=== PATIENT | male | born 1970 | race Caucasian/White ===

== ENCOUNTER 2024-12-19 14:34 | Outpatient (REF) | payer OTHER, SELFPAY ==
[2024-12-19 15:57] LABS: MANUAL DIFF FLAG NO
[2024-12-19 17:08] LABS: Hematocrit 42.9 % (42.0-52.0); Hemoglobin 15.0 g/dl (14.0-18.0); Imm Gran Abs Auto 0.01 X10*3/uL (0.00-0.03); Imm Gran Pct Auto 0.2 % (0.0-0.4); Lymphocytes Absolute Auto 1.3 X10*3/uL (1.2-4.9); Mean Corpuscular HGB Conc 35.0 g/dl (31.0-36.0); Mean Corpuscular Hemoglobin 30.5 pg (27.0-33.0); Mean Corpuscular Volume 87.2 fL (80.0-98.0); NRBC Abs Auto 0.000 X10*3/uL (0.0-0.012); NRBC Pct Auto 0.0 /100WBC (0.0-0.2); Platelet Count 209 X10*3/uL (160-400); Red Blood Count 4.92 X10*6/uL (4.60-5.80); White Blood Count 5.6 X10*3/uL (4.8-10.8)
[2024-12-19 17:38] LABS: Microalbum/Creatinine Ratio Ur 20.3 ug/mg cr (<30)
[2024-12-19 17:44] LABS: Alanine Aminotransferase 35 U/L (0-40); Albumin Level 4.5 g/dL (3.5-5.0); Alkaline Phosphatase 53 U/L (39-117); Anion Gap 13 (12-20); Aspartate Amino Transferase 26 U/L (5-37); Blood Urea Nitrogen 11 mg/dL (9-16); Calcium 9.2 mg/dL (8.4-10.2); Carbon Dioxide 27 mmol/L (22-29); Chloride 107 mmol/L (96-108); Cholesterol 246 mg/dL (<200); Estimated Glomerular Filt Rate > 60; HDL Cholesterol 61 mg/dL (>40); Potassium 4.3 mmol/L (3.3-5.1); Sodium 143 mmol/L (135-145); Total Protein 7.0 g/dL (6.5-8.0); Triglycerides 146 mg/dL (<150)
[2024-12-20 06:13] LABS: Syphilis Screen Nonreactive (Nonreactive)
[2024-12-20 06:43] LABS: HBS Num1 0.21 mIU/mL (0-7.99); HBc Num1 0.03 S/CO (0.00-0.79); HBsAGNum1 0.42 S/CO (0.00-0.99); HIV Num 1 0.07 S/CO (0.00-0.99); Hepatitis A Antibody IgM 0.12 Index (0-0.79); Hepatitis B Surface Antigen Negative (Negative); ~HepC Num1 0.07 S/CO (0.00-0.79); ~Hepatitis A Antibody IgM Nonreactive (Nonreactive); ~Hepatitis B Surface Antibody NONREACTIVE (Nonreactive); ~Hepatitis C Antibody Nonreactive (Nonreactive)
== END 2024-12-19 14:35 | disposition home or self-care (01) ==
LOC: HO.LAB 14:34
PROVIDERS: PCP Student in an Organized Health Care Education/Training Program; Visit Provider Student in an Organized Health Care Education/Training Program
DX: Z00.00 Encounter for general adult medical examination without abnormal findings (principal); I10 Essential (primary) hypertension; G57.11 Meralgia paresthetica, right lower limb
CPT/HCPCS: 36415; 80053; 80061; 82043; 82306; 82570; 83036; 84443; 85025; 86704; 86706; 86709; 86780; 86803; 87340; 87389; 96127

== ENCOUNTER 2024-12-19 14:34 | Outpatient (AMB) | payer OTHER, SELFPAY ==
--- NOTE | 2024-12-19 14:37 | A.OFFPC_ITS ---
Vital Signs 12/19/24 14:40 Height 6 ft Weight 236 lb 4 oz BMI 32.0 BP 150/86 H Blood Pressure Location Rt brachial Position Sitting Pulse 89 Pulse Source Pulse Oximeter Temp 98.2 F Temp Source Temporal Artery Scan Pulse Oximetry (%) 99 Oxygen Delivery Method Room Air Intake Visit Reasons: [place] from [place] (see comments) Power Driven Brush Maker Required: No Accompanied by: Self / Same As Patient Allergies No Known Allergies Allergy (Verified 12/19/24 14:37) Tobacco use date assessed: 12/19/24 Dental Screening Dental Screen Date: 12/19/24 Did you have a dental visit in the last 12 months?: Yes Did you have a dental problem in the last 6 months where you did not have access to dental care?: No HPI HPI Comments History of Present Illness Details The patient is a 54-year-old male presenting to [facility] with a new primary care physician and for management of hypertension. He has a known history of high blood pressure but stopped taking his medication in the spring as he was feeling well. Despite taking his losartan this morning, his blood pressure remains elevated in the 150s. The patient has a significant family history of heart disease; his mother had a myocardial infarction in 2019, and his father has had a heart valve replacement, both of whom are in their 80s. He denies any personal history of surgeries or other medical conditions. 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 He denies associated back pain. For preventative care, his last colonoscopy was approximately three years ago, with a 10-year follow-up interval recommended. Medical History: - Hypertension Surgical History: - No surgeries reported Medications: - Losartan for hypertension; the patient recently resumed this medication after stopping it in the spring. Family History: - Mother: History of a myocardial infarc tion in 2019. - Father: History of heart valve replace ment. - Both parents are in their 80s. - Denies family history of diabetes or c ancer. Diagnostic Results: - Colonoscopy: Performed approximately 3 years ago, with a 10-year follow-up interval recommended. Social History: - Patient is a martínez. - Divides his time between [place] and [facility]. - Alcohol use: Reports drinking 2-3 beer s per week, typically on separate days. - Tobacco use: Denies ever smoking. - Substance use: Denies use of marijuana , heroin, or cocaine. - Weight Management: Patient acknowledge s the need to lose weight. [facility] Medical History (Updated 12/19/24 @ 15:34 by Patel Long MD) Meralgia paraesthetica Hypertension Annual physical exam Family History (Updated 12/19/24 @ 14:44 by Meka Landa MA) Mother No problems noted. Father No problems noted. Social History Housing: Condominium Patient Tobacco Use Status: Never used Tobacco e-Cigarette/Vaping Use: Never Used service: No Current occupational status: employed Cognitive needs: No Hearing needs: No Vision needs: Yes (rx glasses) Questionnaire PHQ-9 Over the last 2 weeks, how often have you been bothered by any of the following problems? 1. Little interest or pleasure in doing things: not at all 2. Feeling down, depressed, or hopeless: not at all 3. Trouble falling or staying asleep, or sleeping too much: not at all 4. Feeling tired or having little energy: not at all 5. Poor appetite or overeating: not at all 6. Feeling bad about yourself - or that you are a failure or have let yourself or your family down: not at all 7. Trouble concentrating on things, such as reading the newspaper or watching television: not at all 8. Moving or speaking so slowly that other people could have noticed. Or the opposite - being so fidgety or restless that you have been moving around a lot more than usual: not at all 9. Thoughts that you would be better off or of hurting yourself in some way: not at all Total score: 0 Depression Screening Interpretation: Negative Depression Screening Done: Yes 72613 - PHQ-9 Billing: Yes Source: Developed by Drs. Danny Longo, Anya Gage, Ajit Anthony and colleagues, with an educational mame from [email or web address]. Thrive Questionnaire Date Thrive assessed: 12/19/24 I am a: Patient What is your living situation today?: I have a steady place to live Within the past 12 months, did the food you bought not last and you didn't have the money to get more?: Never true Within the past 12 months, did you worry whether your food would run out before you got money to buy more?: Never true Do you have trouble paying for medicines?: No Do you have trouble getting transportation to medical appointments?: No Do you have trouble paying your heating and electricity bill?: No Do you have trouble taking care of your child, family member or friend?: No Do you have trouble with day-to-day activities such as bathing, preparing meals, shopping, managing finances, etc.?: No Are you currently unemployed and looking for a job?: No Are you interested in more education?: No THRIVE Score: 0 AUDIT C Alcohol Use Questionnaire (AUDIT-C) 1. How often do you have a drink containing alcohol?: 2-3 times a week 2. How many drinks containing alcohol do you have on a typical day when you are drinking?: 1 or 2 3. How often do you have six or more drinks on one occasion?: Never Total Score: 3 Score Reviewed/Action Taken: Yes BLADE-7 AMB Questionnaire BLADE-7 Date BLADE - 7 assessed: 12/19/24 Feeling nervous, anxious, or on edge: 0 = Not at all Not being able to stop or control worryin = Not at all Worrying too much about different things: 0 = Not at all Trouble relaxin = Not at all Being so restless that it is hard to sit still: 0 = Not at all Becoming easily annoyed or irritable: 0 = Not at all Feeling afraid as if something awful might happen: 0 = Not at all Total BLADE-7 score (0-4 normal; 5-9 mild; 10-14 moderate; 15-21 severe): 0 Source: Developed by Drs. Danny Longo, Anya Gage, Ajit Anthony and colleagues, with an educational mame from [email or web address]. BLADE-7 Assessment Billing BLADE-7 Assessment Tool: BLADE-7 Assessment 91467 Review of Systems Narrative - General: Denies any specific complaints or weight loss but acknowledges the need to lose weight. - Neurological: Reports numbness, warmth, and a prickly sensation on the side of his right leg. - Musculoskeletal: Denies back pain. - Psychiatric: Reports good mood and denies depression or anxiety. All systems reviewed & are unremarkable except as reviewed in HPI and above Physical exam (Primary Care) Vital Signs: Last Vital Signs Temp 98.2 F 12/19/24 14:40 Pulse 89 12/19/24 14:40 BP 150/86 H 12/19/24 14:40 Pulse Ox 99 12/19/24 14:40 Oxygen Delivery Method Room Air 12/19/24 14:40 BMI result Body Mass Index 32.0 Tobacco/Smoking Status: Tobacco use Status Tobacco use date assessed 12/19/24 12/19/24 14:39 Patient Tobacco Use Status Never used Tobacco 12/19/24 14:39 e-Cigarette/Vaping Use Never Used 12/19/24 14:39 PHQ-9: PHQ-9 Score PHQ-9: Total score 0 12/19/24 15:09 Depression Screening Interpretation: Negative Thrive Assessment: Date of Thrive Assessment Date Thrive assessed 12/19/24 12/19/24 14:39 Narrative General: +Alert and oriented, Well nourished, No acute distress. Eye: Pupils are equal, round and reactive to light, Intact accommodation, Extraocular movements are intact, Normal conjunctiva, Vision unchanged. HENT: Normocephalic, Atraumatic, Tympanic membranes are clear, Normal hearing, Oral mucosa is moist, No pharyngeal erythema, Ear canals patent. Respiratory: Lungs CTA bilaterally, No wheeze, Respirations are non-labored. Cardiovascular: Regular rate, Regular rhythm, S1 auscultated, S2 auscultated, No murmur, Good pulses equal in all extremities, Normal peripheral perfusion, No edema. Gastrointestinal: Soft, Non-tender, Non-distended, Normal bowel sounds, No organomegaly. Musculoskeletal: Normal range of motion, Normal strength, No tenderness, No swelling, No deformity, Normal gait. Integumentary: Warm, Dry, [place], Intact. Neurologic: Alert, Oriented, Normal sensory, Normal motor function, No focal defects, Cranial Nerves II-XII are grossly intact, Normal deep tendon reflexes. Psychiatric: Cooperative, Appropriate mood & affect, Normal judgment. Coding Level of Care Code New Pt Level 3 (11695) New Pt Prev Care 40-64y(25097) Diagnoses Primary hypertension I10 Hypertension type: primary hypertension Meralgia paresthetica of right side G57.11 Laterality: right Annual physical exam Z00.00 Additional Codes PHQ-9 - 47509 - PHQ-9 Billing: Yes ([id number]) BLADE-7 Assessment Billing - BLADE-7 Assessment Tool: BLADE-7 Assessment 78139 ([id number]) Comment 55229-00 Assessment & Plan Assessment & Plan (1) Hypertension: Comment: - The patient's hypertension is poorly controlled, with a blood pressure in the 150s despite taking losartan, likely compounded by recent non-adherence. - Given his strong family history of heart disease, the goal is a blood pressure under 130/140 mmHg. - The plan is for the patient to monitor his blood pressure at home for two weeks and follow up. - If his readings remain elevated, the losartan dose may be doubled to 100 mg. - He was also advised on dietary modifications, including reducing salt, sugar, and processed foods. Code(s): I10 - Essential (primary) hypertension Category: Medical Qualifiers: Hypertension type: primary hypertension Qualified Code(s): I10 - Essential (primary) hypertension (2) Meralgia paraesthetica: Comment: - The patient presents with symptoms of numbness and paresthesia on his lateral thigh, consistent with a diagnosis of meralgia paresthetica. - This is likely secondary to wearing tight and compressive clothing for work. - The physical exam revealed no motor deficits. - The plan is for the patient to wear looser clothing, and he was reassured that the symptoms should resolve within a few weeks. Code(s): G57.10 - Meralgia paresthetica, unspecified lower limb Category: Medical Qualifiers: Laterality: right Qualified Code(s): G57.11 - Meralgia paresthetica, right lower limb (3) Annual physical exam: Comment: - This visit serves as an annual physical to establish care. - A comprehensive set of baseline labs has been ordered, including a CBC, electrolytes, lipid profile, syphilis screen, hepatitis panel, HIV test, vitamin D, thyroid studies, and glucose levels. - The patient was informed that if his cholesterol is high, statin therapy would be initiated for primary prevention of cardiovascular disease. - His colonoscopy is up to date, with the next one due in approximately seven years. - The patient was also set up with the patient portal. Code(s): Z00.00 - Encounter for general adult medical examination without abnormal findings Category: Medical Plan: Health Maintenance: - Colon Cancer Screening: Last colonoscopy was approximately three years ago; next screening is due in about seven years. - Cardiovascular Risk Reduction: Discussed the importance of blood pressure control and the potential need for statin therapy pending lipid profile results. Counseled on dietary modifications, including reduction of salt, sugar, and processed foods. - Laboratory Screening: Ordered comprehensive baseline blood work, including CBC, electrolytes, lipid profile, syphilis, hepatitis, HIV, vitamin D, thyroid, and glucose levels. Patient was informed and verbally consented to the use of an ambient scribe for clinic note documentation during this visit. Vital signs reviewed. Comprehensive history, review of systems, and physical exam completed. Medications, allergies, and problem list reviewed and updated. Counseling provided on nutrition, regular exercise, sleep hygiene, and moderation of alcohol use. Discussed age-appropriate screenings (mammogram, colonoscopy, Pap, bone density) and immunizations (flu, COVID, shingles, Tdap). Screened for depression, fall risk, and home safety; no current concerns. Discussed stress management, dental and vision care, and importance of ongoing preventive follow-up. Routine labs ordered for metabolic and lipid screening. Patient educated on healthy lifestyle and agrees with the plan. Plan I discussed with the patient that his blood pressure is currently too high, which places him at an increased risk for heart attack and stroke, especially given his strong family history of heart disease. We agreed on a plan for him to monitor his pressures at home for two weeks before we make any medication adjustments, with a follow-up visit scheduled. I explained that I have ordered comprehensive blood work, and if his cholesterol is elevated, he will need to start a statin medication to reduce his cardiovascular risk. I also addressed his complaint of leg numbness, diagnosing it as meralgia paresthetica due to tight clothing, and I reassured him that this should resolve with wearing looser clothes and that his neurologic exam shows no signs of nerve damage. We reviewed the importance of diet, specifically cutting down on salt and processed foods, as part of his overall health management. Orders: Orders Complete Blood Count Auto Diff Today Z00.00 - Encounter for general adult medical examination without abnormal findings Comprehensive Met. Panel Today Z00.00 - Encounter for general adult medical examination without abnormal findings Hemoglobin A1c Today Z00.00 - Encounter for general adult medical examination without abnormal findings HIV Ab/Ag Today Z00.00 - Encounter for general adult medical examination without abnormal findings Microalbumin, Random (w Creat) Today Z00.00 - Encounter for general adult medical examination without abnormal findings Syphilis Screen Today Z00.00 - Encounter for general adult medical examination without abnormal findings Vitamin D 25-OH Total Today Z00.00 - Encounter for general adult medical examination without abnormal findings Hepatitis A,B,C Profile Today Z00.00 - Encounter for general adult medical examination without abnormal findings Lipid Panel Today Z00.00 - Encounter for general adult medical examination without abnormal findings TSH reflex Free T4 Today Z00.00 - Encounter for general adult medical examination without abnormal findings Patient Instructions: - Buy an upper arm blood pressure cuff. - Check your blood pressure every day for the next two weeks. - Take your losartan pill in the morning as soon as you wake up. - When you check your blood pressure, sit and relax for 10 minutes beforehand and check it about one hour after you take your medication. - Write down your blood pressure readings and bring the list to your follow-up appointment in two weeks. - Go to the lab to have your blood drawn for the ordered tests; you do not need to fast. - Make changes to your diet by cutting down on salt, sugar, and processed foods. - Wear loose-fitting clothing to help with the numbness in your leg. - Sign up for the patient portal to communicate with the office and view your results.
[2024-12-19 14:40] VITALS: BP 150/86; PULSE 89; TEMP 36.8; O2SAT 99; BMI 32.0
--- OUTSIDE RECORDS SUMMARY | 2024-12-19 16:54 | XMS_ITS | Clinical Summary ---
Author Organization [facility] Address [address] [place] [id number] Care Team Providers Care Phosphorus Processing Supervisor Name Role Phone Aaron Nassar MD Primary Care Provider + Allergies No known active allergies Social History Tobacco Use Types Packs/Day Years Used Date Smoking Tobacco: Never Assessed Sex and Gender Information Value Date Recorded Sex Assigned at Not on file Legal Sex Male 18:17 EST Gender Identity Not on file Sexual Orientation Not on file Plan of Treatment Health Maintenance Due Date Last Done Comments Hepatitis C Screen 1970 Hepatitis B Vaccine (1 of 3 - 19+ 3-dose series) 11/29 COVID-19 Vaccine ( season) 2023 Care Teams Phosphorus Processing Supervisor Relationship Specialty Start Date End Date Aaron Nassar MD [address] [place] [id number] PCP - General 08/15/09
--- OUTSIDE RECORDS SUMMARY | 2024-12-19 16:54 | XMS_ITS | Encounter Summary ---
Author Organization [facility] Address [address] [place] [id number] Care Team Providers Care Jive Developer Name Role Phone Aaron Nassar MD Primary Care Provider + Encounter Details Date Type Department Care Team (Late st Contact Info) Description 03/15/2020 Lab Requisition [facility] Pathology & Laboratory Medicine - [address] [address] Outr Resulting Lab, Provider Social History Tobacco Use Types Packs/Day Years Used Date Smoking Tobacco: Never Assessed Sex and Gender Information Value Date Recorded Sex Assigned at Not on file Legal Sex Male 18:17 EST Gender Identity Not on file Sexual Orientation Not on file documented as of this encounter Plan of Treatment Not on file documented as of this encounter Procedures Procedure Name Priority Date/Time Associated Diagnosis Comments THYROPEROXIDASE ANTIBODY Routine 03/15/2020 10:58 EST documented in this encounter Results * (ABNORMAL) THYROPEROXIDASE ANTIBODY (03/15/2020 10:58 EST) Thyroperoxidase Ab 132(H) <=60 U/mL 2020 23:16 EST [facility] Blood VENOUS BLOOD / Unknown 03/15/2020 10:58 EST 03/15/2020 22:14 EST us Provider Outr Resulting Lab CHEMISTRY & BLOOD GA S ORDERABLES Final Result [facility] [address] [place] [address] documented in this encounter Visit Diagnoses Not on filedocumented in this encounter Care Teams Jive Developer Relationship Specialty Start Date End Date Aaron Nassar MD [address] [place] [address] PCP - General 08/15/09 documented as of this encounter
--- OUTSIDE RECORDS SUMMARY | 2024-12-19 16:54 | XMS_ITS | Encounter Summary ---
Author Organization [facility] Address [address] [place] [id number] Care Team Providers Care Acid Etch Operator Name Role Phone Aaron Nassar MD Primary Care Provider + Encounter Details Date Type Department Care Team (Late st Contact Info) Description 03/20/2020 Lab Requisition [facility] Pathology & Laboratory Medicine - [address] [id number] Outr Resulting Lab, Provider Social History Tobacco [...] Procedure Name Priority Date/Time Associated Diagnosis Comments THYROID ANTIBODIES Routine 03/12/2020 10 :58 EST documented in this encounter Results * (ABNORMAL) THYROID ANTIBODIES (03/12/2020 10:58 EST) Anti-Thyroglobulin 101(H) <=60 U/mL 2020 11:46 EST [facility] Thyroperoxidase Ab 142(H) <=60 U/mL 2020 11:46 EST [facility] Blood VENOUS BLOOD / Unknown 03/12/2020 10:58 EST 03/20/2020 8:59 EST us Provider Outr Resulting Lab CHEMISTRY & BLOOD GA S ORDERABLES Final Result [facility] [address] [place] [address] documented in this encounter Visit Diagnoses Not on filedocumented in this encounter Care Teams Acid Etch Operator Relationship Specialty Start Date End Date Aaron Nassar MD [address] [place] [address] PCP - General 08/15/09 documented as of this encounter
== END 2024-12-19 15:40 | disposition home or self-care (01) ==
LOC: HO.HMCHD 14:35
PROVIDERS: PCP Student in an Organized Health Care Education/Training Program; Visit Provider Student in an Organized Health Care Education/Training Program
DX: Z00.00 Encounter for general adult medical examination without abnormal findings (principal); I10 Essential (primary) hypertension; G57.11 Meralgia paresthetica, right lower limb